=== PATIENT | male | born 1940 | race Caucasian/White ===

== ENCOUNTER 2017-10-08 12:46 | Emergency (ER) | payer MEDICARE ==
[2017-10-08 13:35] LABS: BASOPHILS % (AUTO) 0.6 % (0.0-5.0); EOSINOPHILS % (AUTO) 4.5 % (0.0-8.0); HEMATOCRIT 51.2 % (42-54); LYMPHOCYTES % (AUTO) 13.2 % (21.0-51.0); MEAN CORPUSCULAR HGB CONC 33.6 g/dL (32.0-36.0); MEAN CORPUSCULAR VOLUME 92.4 fL (79-99); MONOCYTES % (AUTO) 12.7 % (3.0-13.0); NUCLEATED RED BLOOD CELLS 0.1 % (0.0-0.19); PLATELET COUNT (AUTO) 147 K/uL (130-400); RED BLOOD CELL COUNT(AUTO) 5.54 MIL/uL (4.50-6.20); RED CELL DISTRIBUTION WIDTH 13.8 % (11.0-15.5); WHITE BLOOD COUNT (AUTO) 5.8 K/uL (4.8-10.8)
[2017-10-08 13:53] LABS: INR 1.05 (0.85-1.15); PARTIAL THROMBOPLASTIN TIME 29.2 SEC (26.3-35.5)
[2017-10-08 13:54] LABS: CREATININE 1.1 mg/dL (0.5-1.5); POTASSIUM 3.7 mmol/L (3.5-5.1)
[2017-10-08 14:08] LABS: ALBUMIN 3.6 g/dL (3.5-5.0); BILIRUBIN,TOTAL 1.4 mg/dL (0.2-1.0); CREATINE KINASE MB 1.4 ng/mL (0.5-3.6); TOTAL PROTEIN, SERUM 6.7 g/dL (6.0-8.3)
[2017-10-08 14:14] LABS: B-TYPE NATRIURETIC PEPTIDE 91 pg/mL (0-100)
== END 2017-10-08 17:25 | disposition home or self-care (01) ==
LOC: EDH 12:46
DX: R55 Syncope and collapse (principal); R07.89 Other chest pain; R06.02 Shortness of breath; I25.810 Atherosclerosis of coronary artery bypass graft(s) without angina pectoris; I25.2 Old myocardial infarction; Z95.1 Presence of aortocoronary bypass graft
CPT/HCPCS: 36415; 70450; 71045; 80053; 82550; 82553; 83880; 84484; 85025; 85610; 85730; 93005; 93970; 99291

== ENCOUNTER 2017-10-13 12:25 | Observation (INO) | payer MEDICARE ==
[~2017-10-13] VITALS: Ht 177.8 cm; Wt 91.2 kg
[2017-10-13 13:35] LABS: BASOPHILS % (AUTO) 0.8 % (0.0-5.0); EOSINOPHILS % (AUTO) 7.3 % (0.0-8.0); HEMATOCRIT 50.4 % (42-54); LYMPHOCYTES % (AUTO) 15.9 % (21.0-51.0); MEAN CORPUSCULAR HEMOGLOBIN 31.1 pg (27.0-33.0); MEAN CORPUSCULAR HGB CONC 33.8 g/dL (32.0-36.0); MONOCYTES % (AUTO) 13.2 % (3.0-13.0); NEUTROPHILS % (AUTO) 62.8 % (40.0-77.0); PLATELET COUNT (AUTO) 150 K/uL (130-400); RED BLOOD CELL COUNT(AUTO) 5.48 MIL/uL (4.50-6.20)
[2017-10-13 13:44] LABS: CREATININE 1.2 mg/dL (0.5-1.5); POTASSIUM 4.2 mmol/L (3.5-5.1)
[2017-10-13 13:50] LABS: ALBUMIN 3.5 g/dL (3.5-5.0); BILIRUBIN,DIRECT 0.3 mg/dL (0.0-0.3); BILIRUBIN,TOTAL 1.4 mg/dL (0.2-1.0); TOTAL PROTEIN, SERUM 6.7 g/dL (6.0-8.3)
[2017-10-13 13:51] LABS: CRP QUANTITATIVE < 2.00 mg/L (0.00-9.0)
[2017-10-13 13:54] LABS: INR 1.02 (0.85-1.15); PARTIAL THROMBOPLASTIN TIME 29.9 SEC (26.3-35.5); PROTHROMBIN TIME 10.7 SEC (9.6-11.6)
[2017-10-13 15:33] LABS: ERYTHROCYTE SEDIMENTATION RATE 1 MM/HR (0-15)
[2017-10-13] MEDS ORDERED: ENOXAPARIN SODIUM 100 MG/1 ML SQ ONE (15:46)
[2017-10-13] MEDS ORDERED: ONDANSETRON HCL MDV 20ML 2 MG/ML VIAL IV PRN (16:30)
[2017-10-13] MEDS ORDERED: HYDRALAZINE HCL 20 MG/ML VIAL IV PRN (16:30)
[2017-10-13] MEDS ORDERED: ACETAMINOPHEN 325 MG TAB PO PRN (16:30)
[2017-10-13 17:40] VITALS: BP 148/79
[2017-10-13] MEDS ORDERED: CARV12.511 PO (19:39)
[2017-10-13] MEDS ORDERED: ATOR40TA69 PO (19:48)
[2017-10-13] MEDS ORDERED: AMLO5TAB2 PO (19:48)
[2017-10-13] MEDS ORDERED: LISI-617 PO (19:48)
[2017-10-13 19:59] VITALS: BP 134/76
[2017-10-13] MEDS: APIXABAN 5 MG TABLET PO SCH (21:16)
[2017-10-14] VITALS: BP 117/61
[2017-10-14 04:00] VITALS: BP 122/75
[2017-10-14 08:00] VITALS: BP 143/70
[2017-10-14] MEDS ORDERED: PANTOPRAZOLE SODIUM 40 MG TABLET.DR PO SCH (09:00)
[2017-10-14] MEDS: APIXABAN 5 MG TABLET PO SCH (09:39)
[2017-10-14] MEDS ORDERED: OMEG-53 PO (09:45)
[2017-10-14] MEDS ORDERED: PSYL3.4P5 PO (09:45)
[2017-10-14] MEDS ORDERED: GLUC100019 PO (09:45)
[2017-10-14 11:50] VITALS: BP 122/81
[2017-10-14 13:46] LABS: APPEARANCE,URINE Clear (CLEAR); BILIRUBIN,URINE Negative (NEGATIVE); COLOR,URINE Yellow (YELLOW); GLUCOSE, URINE (UA) Negative (NEGATIVE); KETONES,URINE Negative (NEGATIVE); LEUKOCYTE ESTERASE ,URINE Negative (NEGATIVE); NITRATE,URINE Negative (NEGATIVE); OCCULT BLOOD,URINE Negative (NEGATIVE); PH,URINE 5.5 (5.0-8.0); PROTEIN,URINE Negative (NEGATIVE)
[2017-10-14] MEDS ORDERED: APIX5TAB PO (14:41)
[2017-10-14] MEDS ORDERED: PSYLLIUM SEED 1 EACH PACKET PO SCH (21:00)
[2017-10-14] MEDS ORDERED: CARVEDILOL 12.5 MG TABLET PO SCH (21:00)
[2017-10-15] MEDS ORDERED: AMLODIPINE BESYLATE 5 MG TAB PO SCH (09:00)
[2017-10-15] MEDS ORDERED: ATORVASTATIN CALCIUM 40 MG TABLET PO SCH (09:00)
[2017-10-15] MEDS ORDERED: GLUCOSAMINE-CHONDROITIN PO SCH (09:00)
[2017-10-15] MEDS ORDERED: LISINOPRIL 5 MG TABLET PO SCH (09:00)
[2017-10-15] MEDS ORDERED: FISH OIL 1000 MG/CAP PO SCH (09:00)
== END 2017-10-14 16:15 | disposition home or self-care (01) ==
LOC: EDH 12:25 → EDHIP 16:28 → 4BH 17:18
PROVIDERS: ADMIT Family Medicine; ATTEND Family Medicine
DX: I82.612 Acute embolism and thrombosis of superficial veins of left upper extremity (principal); I25.10 Atherosclerotic heart disease of native coronary artery without angina pectoris; Z95.1 Presence of aortocoronary bypass graft; I10 Essential (primary) hypertension; E78.5 Hyperlipidemia, unspecified
CPT/HCPCS: 36415; 73080; 80048; 80076; 81003; 84550; 85025; 85610; 85651; 85730; 86141; 93005; 93971; 99285; G0378 ×24; J1650

== ENCOUNTER 2020-04-11 04:35 | Inpatient (IN) | payer MEDICARE ==
[~2020-04-11] VITALS: Ht 177.8 cm; Wt 90.7 kg
[~2020-04-11 04:35] MED LIST: AMLO5TAB9 PO; APIX5TAB PO; ATOR40TA69 PO; CARV12.511 PO; GLUC100019 PO; LISI-617 PO; OMEG-53 PO; PSYL3.4P5 PO
[2020-04-11] MEDS ORDERED: NITROGLYCERIN 1GM/1 INCH PACKET TD ONE ×2 (04:42→12:37)
[2020-04-11] MEDS ORDERED: ASPIRIN 325 MG TABLET ONE (04:42)
[2020-04-11 04:50] LABS: BASOPHILS % (AUTO) 0.7 % (0.0-5.0); EOSINOPHILS % (AUTO) 6.7 % (0.0-8.0); HEMATOCRIT 53.3 % (42-54); LYMPHOCYTES % (AUTO) 25.1 % (21.0-51.0); MEAN CORPUSCULAR HEMOGLOBIN 30.7 pg (27.0-33.0); MEAN CORPUSCULAR HGB CONC 33.6 g/dL (32.0-36.0); MEAN CORPUSCULAR VOLUME 91.4 fL (79-99); NEUTROPHILS % (AUTO) 54.2 % (40.0-77.0); PLATELET COUNT (AUTO) 145 K/uL (130-400); RED BLOOD CELL COUNT(AUTO) 5.83 MIL/uL (4.50-6.20); RED CELL DISTRIBUTION WIDTH 13.2 % (11.0-15.5); WHITE BLOOD COUNT (AUTO) 5.8 K/uL (4.8-10.8)
[2020-04-11 05:01] LABS: CREATININE 1.1 mg/dL (0.5-1.5); POTASSIUM 4.2 mmol/L (3.5-5.1)
[2020-04-11 05:04] LABS: ALBUMIN 3.8 g/dL (3.5-5.0); BILIRUBIN,TOTAL 1.2 mg/dL (0.2-1.0)
[2020-04-11 05:11] LABS: B-TYPE NATRIURETIC PEPTIDE 80 pg/mL (0-100)
[2020-04-11 05:17] LABS: INR 0.99 (0.85-1.15); PARTIAL THROMBOPLASTIN TIME 29.9 SEC (26.3-35.5); PROTHROMBIN TIME 10.7 SEC (9.6-11.6)
[2020-04-11 06:49] LABS: APPEARANCE,URINE CLEAR (CLEAR); BILIRUBIN,URINE NEGATIVE (NEGATIVE); COLOR,URINE YELLOW (YELLOW); GLUCOSE, URINE (UA) NEGATIVE (NEGATIVE); KETONES,URINE NEGATIVE (NEGATIVE); LEUKOCYTE ESTERASE ,URINE NEGATIVE (NEGATIVE); NITRATE,URINE NEGATIVE (NEGATIVE); OCCULT BLOOD,URINE NEGATIVE (NEGATIVE); PROTEIN,URINE NEGATIVE (NEGATIVE); UROBILINOGEN,URINE 0.2 mg/dL (0.2-1.0)
[2020-04-11] MEDS: SODIUM CHLORIDE 0.9% 1000ML 1,000 ML IV SCH ×2 (08:17→21:19)
[2020-04-11] MEDS ORDERED: MORPHINE SULFATE 2 MG/ML 1ML SYG IV PRN (08:30)
[2020-04-11] MEDS ORDERED: ACETAMINOPHEN 325 MG TAB PO PRN ×2 (08:30)
[2020-04-11] MEDS ORDERED: PHARMACY COMMUNICATION MISC SCH (08:30)
[2020-04-11] MEDS ORDERED: ONDANSETRON HCL 4 MG/2 ML VIAL IV PRN (08:30)
[2020-04-11] MEDS ORDERED: APIXABAN 2.5 MG TABLET PO ONE (08:32)
[2020-04-11] MEDS ORDERED: ENOXAPARIN SODIUM 40 MG/0.4 ML SYRINGE SQ ONE (08:33)
[2020-04-11] MEDS ORDERED: ENOXAPARIN SODIUM 40 MG/0.4 ML SYRINGE SQ SCH (09:00)
[2020-04-11] MEDS ORDERED: ATORVASTATIN CALCIUM 40 MG TABLET PO SCH (09:00)
[2020-04-11] MEDS ORDERED: ASPIRIN 81MG TAB.CHEW PO SCH (09:00)
[2020-04-11] MEDS: APIXABAN 5 MG TABLET PO SCH ×2 (09:00→21:08)
[2020-04-11 09:24] LABS: HEMOGLOBIN A1C 5.3 % (4.0-6.0)
[2020-04-11] MEDS: NITROGLYCERIN 1GM/1 INCH PACKET TD SCH ×2 (16:30→23:36)
--- NOTE | 2020-04-11 19:50 | NUR ---
STRESS TEST DOWN TO RADIOLOGY FOR FIRST PART OF STRESS TEST VIA WC,.SPOKE TO PATIENTS DAUGHTER BAMBI REGARDING FATHERS PLAN OF Care, patient with history of forgetfulness, per daughter leora akers has many episodes of forgetfulness , will follow tomorrow to speak with physcian
[2020-04-11 20:02] VITALS: BP 145/90
[2020-04-12 00:13] VITALS: BP 135/74
[2020-04-12 03:47] LABS: BASOPHILS % (AUTO) 0.4 % (0.0-5.0); EOSINOPHILS % (AUTO) 1.3 % (0.0-8.0); HEMATOCRIT 47.6 % (42-54); MEAN CORPUSCULAR HEMOGLOBIN 30.9 pg (27.0-33.0); MEAN CORPUSCULAR VOLUME 90.7 fL (79-99); MONOCYTES % (AUTO) 10.1 % (3.0-13.0); NEUTROPHILS % (AUTO) 75.1 % (40.0-77.0); PLATELET COUNT (AUTO) 142 K/uL (130-400); RED BLOOD CELL COUNT(AUTO) 5.25 MIL/uL (4.50-6.20); WHITE BLOOD COUNT (AUTO) 6.9 K/uL (4.8-10.8)
[2020-04-12 04:02] VITALS: BP 122/75
[2020-04-12 07:45] VITALS: BP 132/78
[2020-04-12] MEDS: APIXABAN 5 MG TABLET PO SCH (08:15)
[2020-04-12] MEDS: NITROGLYCERIN 1GM/1 INCH PACKET TD SCH ×2 (08:27→16:49)
[2020-04-12] MEDS: CARVEDILOL 12.5 MG TABLET PO SCH ×2 (08:27→20:30)
[2020-04-12] MEDS: LISINOPRIL 5 MG TABLET PO SCH (08:28)
[2020-04-12 10:12] LABS: HEPATITIS A ANTIBODY IGM Negative (Negative); HEPATITIS B CORE IGM Negative (Negative); HEPATITIS Bs ANTIGEN SCREEN P Negative (Negative)
[2020-04-12] MEDS ORDERED: REGADENOSON 0.4 MG/5 ML PF SYG IVP SCH (10:30)
[2020-04-12] MEDS: SODIUM CHLORIDE 0.9% 1000ML 1,000 ML IV SCH (10:57)
[2020-04-12 11:08] VITALS: BP 154/81
[2020-04-12] MEDS ORDERED: ROSU20TA31 PO (12:48)
[2020-04-12] MEDS ORDERED: GABA-529 PO ×2 (12:48)
[2020-04-12] MEDS ORDERED: FURO20TA4 PO (12:48)
[2020-04-12] MEDS ORDERED: LATA7.5D OP (12:48)
[2020-04-12] MEDS ORDERED: CARB-38 PO (12:48)
[2020-04-12] MEDS ORDERED: AMLO5TAB9 PO (12:48)
[2020-04-12] MEDS ORDERED: CARV6.25 PO (12:48)
[2020-04-12] MEDS ORDERED: LISI-617 PO (12:48)
[2020-04-12] MEDS ORDERED: MV-M1TAB20 PO (13:58)
[2020-04-12] MEDS ORDERED: ASPI-1197 PO (13:58)
[2020-04-12 16:09] VITALS: BP 154/66
[2020-04-12 20:00] VITALS: BP 136/80
--- NOTE | 2020-04-12 20:00 | NUR ---
ASSESSMENT NOTE PATIENT AWAKE, ALERT, OX2 , PATIENT VERY FORGETFUL, 1:1 AT BEDSIDE, NO SOB, NO C/O PAIN AT THIS TIME
[2020-04-12] MEDS ORDERED: ATORVASTATIN CALCIUM 40 MG TABLET PO SCH (21:00)
[2020-04-13] VITALS (7 sets, daily range): BP systolic 91–140; BP diastolic 55–85
[2020-04-13] MEDS: SODIUM CHLORIDE 0.9% 1000ML 1,000 ML IV SCH ×2 (00:17→13:37)
[2020-04-13] MEDS: NITROGLYCERIN 1GM/1 INCH PACKET TD SCH ×2 (00:47→08:21)
[2020-04-13] MEDS: ISOSORBIDE MONO 30MG TAB SR PO SCH (08:20)
[2020-04-13] MEDS: ASPIRIN 81MG TAB.CHEW PO SCH (08:20)
[2020-04-13] MEDS: CARVEDILOL 12.5 MG TABLET PO SCH (08:20)
[2020-04-13] MEDS: LISINOPRIL 5 MG TABLET PO SCH (08:20)
[2020-04-13] MEDS: ENOXAPARIN SODIUM 40 MG/0.4 ML SYRINGE SQ SCH (09:00)
[2020-04-13] MEDS: GABAPENTIN 300 MG CAPSULE PO SCH ×2 (14:19→20:38)
[2020-04-13] MEDS: CARBIDOPA-LEVODOPA 25-100 TAB PO SCH ×2 (14:19→20:38)
--- NOTE | 2020-04-13 19:28 | NUR ---
INITIAL: Pt w confusion. Received call from pt's dtr Jillian Mcclelland. She mentions that her parents are [place] but because of pandemic have stayed in [place] longer. Per Jillian, prior to admission pt was independent w ambulation and ADLs. He does not own any DME or received any services. She mentions that pt was previously driving. She is concerned about pt going back home w spouse as they are both forgetful. She is not willing to consider placement and is making arrangements to come down to get them. She says they have friends that can assist w transportation but is not sure how her mom will manage him at home if he continues w confusion. DCP remains for home Dr. Mao updated. Primary nurse updated. Addendum: 04/13/20 at 1932 by JAYNA XIAO CM Amended: Links added.
[2020-04-13] MEDS: CARVEDILOL 6.25 MG TABLET PO SCH (20:38)
[2020-04-13] MEDS ORDERED: ATORVASTATIN CALCIUM 40 MG TABLET PO SCH (21:00)
[2020-04-13] MEDS: HYDROMORPHONE 1 MG/1 ML AMP IVP PRN ×2 (21:26→23:01)
[2020-04-14] VITALS: BP 121/70
[2020-04-14] MEDS: HYDROMORPHONE 1 MG/1 ML AMP IVP PRN ×4 (01:01→05:15)
[2020-04-14] MEDS: SODIUM CHLORIDE 0.9% 1000ML 1,000 ML IV SCH (02:57)
[2020-04-14 04:00] VITALS: BP 128/63
[2020-04-14 04:21] LABS: BASOPHILS % (AUTO) 0.3 % (0.0-5.0); EOSINOPHILS % (AUTO) 3.4 % (0.0-8.0); HEMATOCRIT 46.2 % (42-54); LYMPHOCYTES % (AUTO) 21.9 % (21.0-51.0); MEAN CORPUSCULAR HEMOGLOBIN 30.9 pg (27.0-33.0); MEAN CORPUSCULAR VOLUME 90.9 fL (79-99); MONOCYTES % (AUTO) 14.2 % (3.0-13.0); PLATELET COUNT (AUTO) 133 K/uL (130-400); RED BLOOD CELL COUNT(AUTO) 5.08 MIL/uL (4.50-6.20); RED CELL DISTRIBUTION WIDTH 13.1 % (11.0-15.5); WHITE BLOOD COUNT (AUTO) 5.9 K/uL (4.8-10.8)
[2020-04-14 04:46] LABS: CREATININE 1.1 mg/dL (0.5-1.5); POTASSIUM 3.6 mmol/L (3.5-5.1)
[2020-04-14 08:00] VITALS: BP 155/86
[2020-04-14] MEDS: CARVEDILOL 6.25 MG TABLET PO SCH (09:00)
[2020-04-14] MEDS: LISINOPRIL 5 MG TABLET PO SCH (09:00)
[2020-04-14] MEDS ORDERED: FUROSEMIDE 20 MG TABLET PO SCH (09:00)
[2020-04-14] MEDS ORDERED: Isosorbide Mono 30MG Tab Sr PO (09:29)
[2020-04-14] MEDS ORDERED: NITR0.4T SL (09:32)
[2020-04-14] MEDS: CARBIDOPA-LEVODOPA 25-100 TAB PO SCH ×2 (09:49→16:09)
[2020-04-14] MEDS: ASPIRIN 81MG TAB.CHEW PO SCH (09:49)
[2020-04-14] MEDS: GABAPENTIN 300 MG CAPSULE PO SCH ×2 (09:51→16:09)
[2020-04-14] MEDS: ISOSORBIDE MONO 30MG TAB SR PO SCH (09:56)
[2020-04-14] MEDS: ENOXAPARIN SODIUM 40 MG/0.4 ML SYRINGE SQ SCH (09:58)
[2020-04-14 12:00] VITALS: BP 93/49
--- NOTE | 2020-04-14 15:06 | NUR ---
CM Note: [employer]. Faxed request for [employer] signed by Dr Tristan Ordaz as per aniceto's request. Pt will dc to home, and daughter will arranged flight from [place] to daughter's house out of state. Confirmation received. Copied clinicals packet and forms for daughter to take home as per daughter's request, primary nurse to give form to spouse once pt ready to DC. Primary nurse aware. CM to cont to follow up.
[2020-04-14 16:00] VITALS: BP 129/77
--- NOTE | 2020-04-14 17:30 | NUR ---
Patient was taught about condition that he presented into the emergency department with, patient lacked knowledge on Acute Coronary Syndrome and was given and read information on the condition. Patient was told to call Dr. Hoffman to schedule an appointment 1 week from today. Patient was advised to engage in activity as tolerated and prescribed. Patient was taught about new prescriptions that were prescribed and when to take them. Patient was advised to take medication if pain is present and rest, alert emergency response if pain was present more than 5 minutes after first dose of Nitroglycerin. Patient stated understanding of all instructions and given the opportunity to ask questions; patients was notified of discharge. IV Access and Telebox was removed.
== END 2020-04-14 18:10 | disposition home or self-care (01) | DRG 311 ==
LOC: EDH 04:35 → EDHIP 08:17 → 3AH 15:15
PROVIDERS: ADMIT Hospitalist; ATTEND Hospitalist
DX: I24.8 Other forms of acute ischemic heart disease (principal); I25.10 Atherosclerotic heart disease of native coronary artery without angina pectoris; I10 Essential (primary) hypertension; E78.5 Hyperlipidemia, unspecified; F41.1 Generalized anxiety disorder; E78.00 Pure hypercholesterolemia, unspecified; G20 Parkinson's disease; I25.2 Old myocardial infarction; Z95.1 Presence of aortocoronary bypass graft; Z79.01 Long term (current) use of anticoagulants; Z82.49 Family history of ischemic heart disease and other diseases of the circulatory system
CPT/HCPCS: 36415; 71045; 78452; 80048; 80053; 80074; 81003; 83036; 83605; 83690; 83880; 84484; 85025; 85610; 85730; 93005; 93017; 93306; 93356; 96374; A9500; G0378; J1170; J1650; J2785